=== PATIENT | male | born 1995 | race Caucasian/White ===

== ENCOUNTER 2021-03-24 16:30 | Emergency (ER) | payer SELFPAY ==
[~2021-03-24] VITALS: Ht 152.4 cm; Wt 60.2 kg
[2021-03-24 16:35] VITALS: BP 109/79
[2021-03-24] MEDS ORDERED: NEOSPORIN OINT. PKT 1 PACKET ONE (18:22)
== END 2021-03-24 18:55 | disposition home or self-care (01) ==
LOC: ED 18:49
DX: S62.354A Nondisplaced fracture of shaft of fourth metacarpal bone, right hand, initial encounter for closed fracture (principal); W18.30XA Fall on same level, unspecified, initial encounter; Y93.89 Activity, other specified; Y92.828 Other wilderness area as the place of occurrence of the external cause; Y99.8 Other external cause status
CPT/HCPCS: 29125; 99283